=== PATIENT | male | born 1970 | race Caucasian/White ===

== ENCOUNTER 2021-05-22 12:41 | Emergency (ER) | payer OTHER, SELFPAY ==
[2021-05-22 12:46] VITALS: BP 106/70; PULSE 104; RESP 16; TEMP 36.8; O2SAT 98
--- NOTE | 2021-05-22 13:46 | ED.GENADULT ---
HPI - General Adult General Chief complaint: Back Pain/Injury Stated complaint: leg pain Time Seen by Provider: 05/22/21 12:42 Source: patient and RN notes reviewed Mode of arrival: ambulatory Limitations: no limitations History of Present Illness HPI narrative: Patient is a 51-year-old male who presents with history of back pain for 1 year noting that he gets pain in the lower back that radiates into the legs has seen orthopedist for this had x-rays of the hip and knee which were unremarkable patient has not seen primary care noting that he does not have 1 patient presents in no distress denying any current pain patient denies injury or trauma notes that his pain typically worsens while at work where he does prolonged standing patient on arrival presents with normal gait no distress Related Data Allergies Allergy/AdvReac Type Severity Reaction Status Date / Time Penicillins Allergy Mild Other Verified 05/22/21 12:58 Review of Systems Review of Systems: All systems reviewed & are unremarkable except as noted in HPI and below PMFSH Social History Social History (Updated 05/22/21 @ 13:47 by Louis Jacobs PA-C) Smoking status: Current every day smoker Gender identity (if verbalized by the patient): Male Exam Narrative: Exam Narrative: GENERAL: Well-appearing, well-nourished, and in no acute distress. HEAD: Normocephalic, atraumatic. EYES: PERRLA and EOMI. ENT: Nares clear, no rhinorrhea or epistaxis. Mucous membranes moist. CHEST: Clear to auscultation. No respiratory distress. No wheezes rales or rhonchi HEART: Regular rate and rhythm. No murmur heard. EXTREMITIES: Normal range of motion. No edema. SKIN: Warm, dry, no rash. NEURO: No focal deficits. Alert and oriented x3. Cranial nerves II through XII grossly intact. Normal speech and gait PSYCH: Normal mood and affect. Course Course Emergency Course: Patient given referral for primary care for further evaluation of his back pain will be discharged home does not currently have pain felt appropriate for outpatient reevaluation Vital Signs Vital signs: Vital Signs Temperature 98.2 F 05/22/21 12:46 Pulse Rate 104 H 05/22/21 12:46 Respiratory Rate 16 05/22/21 12:46 Blood Pressure 106/70 05/22/21 12:46 Pulse Oximetry 98 05/22/21 12:46 Temperature 98.2 F 05/22/21 12:46 Pulse Rate 104 H 05/22/21 12:46 Respiratory Rate 16 05/22/21 12:46 Blood Pressure 106/70 05/22/21 12:46 Pulse Oximetry 98 05/22/21 12:46 Medical Decision Making MDM Narrative Medical decision making narrative: Patients pain is positional in nature and localized to back without signs of cord compression or cauda equina based on neurological exam, skeletal exam and history. No fever or other significant factors to suggest osteomyelitis or spinal epidural abscess. No symptoms or signs to suggest pain is referred from abdominal or / cardiopulmonary sources. No pulsatile masses noted on exam. Patient ambulates with steady gait and is stable for outpatient management given case findings. Vital Signs Vital Signs: Vital Signs Temperature 98.2 F 05/22/21 12:46 Pulse Rate 104 H 05/22/21 12:46 Respiratory Rate 16 05/22/21 12:46 Blood Pressure 106/70 05/22/21 12:46 Pulse Oximetry 98 05/22/21 12:46 Temperature 98.2 F 05/22/21 12:46 Pulse Rate 104 H 05/22/21 12:46 Respiratory Rate 16 05/22/21 12:46 Blood Pressure 106/70 05/22/21 12:46 Pulse Oximetry 98 05/22/21 12:46 Discharge Plan Discharge Clinical Impression: Lumbar radiculopathy Patient Disposition: Home, Self-Care Condition: Stable Instructions: Antibiotic Form, Acute Low Back Pain (ED) Additional Instructions: Medications as needed and prescribed. Limit lifting and bending. You may apply heat or cold to the area as needed. Follow up with your doctor for further care in the next 7 days. Contact your doctor or return to the emergency department if you
== END 2021-05-22 13:55 | disposition home or self-care (01) ==
PROVIDERS: Emergency Provider Emergency Medicine
DX: M54.16 Radiculopathy, lumbar region (principal); F17.200 Nicotine dependence, unspecified, uncomplicated
CPT/HCPCS: 99283

== ENCOUNTER 2021-06-09 07:39 | Outpatient (CLI) | payer OTHER, SELFPAY ==
--- NOTE | ~2021-06-09 | MR_ITS ---
EXAMINATION: MR femur LT wo con, MR lower leg LT wo con DATE: 06/09/2021 10:06 INDICATION: Left leg pain TECHNIQUE: 1. Magnetic resonance imaging (MRI) of the left thigh/femur was performed without intravenous contras t. Sequences included axial, sagittal and coronal T1-weighted FSE and fluid sensitive FSE STIR. The c ontralateral right thigh is included on the coronal images. 2. MRI of the left lower leg was performed without intravenous contrast. Sequences included axial, sa gittal and coronal T1-weighted FSE and fluid sensitive FSE STIR. The contralateral right lower leg is included on the coronal images. COMPARISON: None. FINDINGS: Bone alignment is normal from the hips through the ankles. Normal bone marrow signal throughout. No f racture, reactive edema or pathologic marrow replacing process. Joint spaces appear normal although e valuation is somewhat limited given the large field of view of imaging. No joint effusions. No abnorm al masses or fluid collections identified. Normal and symmetric muscle bulk and signal throughout the bilateral thighs and calves. IMPRESSION: 1. Normal MRI of the left femur/thigh and left lower leg. Reviewed, dictated and finalized at location A. IMPRESSION: 1. Normal MRI of the left femur/thigh and left lower leg.
--- NOTE | ~2021-06-09 | MR_ITS ---
EXAMINATION: MR lumbar spine wo con EXAM DATE: 06/09/2021 10:06 INDICATION: Low back pain, left leg pain. TECHNIQUE: Multi-sequential, multiplanar MR images of the lumbar spine were obtained without contrast . Sagittal T1, T2, T2 fat saturation images. Axial T2 weighted images. There is no prior study for comparison. FINDINGS: Mild disc disease all levels from T11 to L5 with small Schmorl's nodes. Mild diffuse loss o f vertebral body height. Small hemangioma within the L1 vertebral body. The vertebral bodies are alig serene in the AP dimension. Nerve root redundancy above the L3-4 level likely due to the moderate to sev ere central canal stenosis at that level. Paraspinal soft tissue is unremarkable. Level by level evaluation: T12-L1: Disc does not extend beyond the endplate margin. Facet arthropathy: None. Neural foraminal stenosis: No stenosis. Central canal stenosis: No stenosis. L1-L2: Disc does not extend beyond the endplate margin. Facet arthropathy: Mild. Neural foraminal stenosis: No stenosis. Central canal stenosis: No stenosis. L2-L3: There is a mild diffuse disc bulge. Facet arthropathy: Mild to moderate. Neural foraminal stenosis: No stenosis. Central canal stenosis: Mild. L3-L4: There is a moderate to large diffuse disc bulge. Facet arthropathy: Moderate. Neural foraminal stenosis: Mild bilateral. Central canal stenosis: Moderate to severe. L4-L5: There is a moderate diffuse disc bulge. Facet arthropathy: Mild to moderate. Neural foraminal stenosis: Mild to moderate bilateral. Central canal stenosis: Mild. L5-S1: There is a mild diffuse disc bulge. Facet arthropathy: Mild. Neural foraminal stenosis: Mild to moderate left, mild right. Central canal stenosis: Mild. IMPRESSION: 1. L3-4 moderate to severe central canal stenosis likely causing the nerve root redundancy above thi s level. 2. Otherwise mild to moderate lumbar spondylosis. Reviewed, dictated and finalized at location A. IMPRESSION: 1. L3-4 moderate to severe central canal stenosis likely causing the nerve leland t redundancy above this level. 2. Otherwise mild to moderate lumbar spondylosis.
== END 2021-06-09 07:40 | disposition home or self-care (01) ==
PROVIDERS: Visit Provider Nurse Practitioner
DX: M54.5 Low back pain (principal); M79.605 Pain in left leg; M48.061 Spinal stenosis, lumbar region without neurogenic claudication; M47.816 Spondylosis without myelopathy or radiculopathy, lumbar region
CPT/HCPCS: 72148; 73718; 73721

== ENCOUNTER 2025-07-12 16:29 | Emergency (ER) | payer OTHER, SELFPAY ==
--- OUTSIDE RECORDS SUMMARY | 2025-07-12 16:36 | XMS_ITS | Clinical Summary ---
Author Organization [facility] Address [address] [place] [address] Care Team Providers Care Extrusion Former Name Role Phone Vadim Odom MD Primary Care Provider Source Comments [facility],non-owned Affiliates and Associated Physician Practices is amultiple site organization consisting of ambulatory clinics and hospital sitesin [place], [place], [place] and [place]. This disclosure is being madepursuant to the Care Everywhere program and may not contain all information available regarding this patient. Last updated 18.[facility] Allergies Active Allergy Reactions Criticality Noted Date Comments Penicillins Other High 07/18/2021 As a child Medications * Be aware that medications may not be up to date on this document. Alwaysverify current medications with the patient. cyclobenzaprine (FLEXERIL) 5 MG tablet Take 1 (one) tablet by mouth nightly as needed (Muscle spasms) 30 tablet 1 10/29/2021 Active gabapentin (NEURONTIN) 300 MG capsule Take 1 (one) capsule by mouth 3 times daily 90 capsule 4 10/29/2021 Active Active Problems No known active problems Social History Tobacco Use Types Packs/Day Years Used Date Smoking Tobacco: Every Day Cigarettes Smokeless Tobacco: Never Tobacco Cessation:Ready to Q uit: Yes; Counseling Given: Yes Alcohol Use Standard Drinks/Week Comments Yes 0 (1 standard drink = 0.6 oz pur e alcohol) Sex and Gender Information Value Date Recorded Sex Assigned at Not on file Legal Sex Male 11:59 AM CDT Gender Identity Not on file Sexual Orientation Not on file Last Filed Vital Signs Vital Sign Reading Time Taken Comments Blood Pressure - - Pulse - - Temperature - - Respiratory Rate - - Oxygen Saturation - - Inhaled Oxygen Concentration - - Weight 68 kg (150 lb) 07/18/2021 9:38 AM CDT Height - - Body Mass Index - - Plan of Treatment Health Maintenance Due Date Last Done Comments COLOGUARD (AGES 45-75) - COL ON CA SCREENING 1970 COLON MONITORING 1970 COLONOSCOPY - COLON CA SCREENING 1970 CT COLONOGRAPHY - COLON CA SCREENING 1970 Colorectal Cancer Screening 1970 FIT - COLON CA SCREENING 1970 FLEX SIG - COLON CA SCREENING 1970 LIPID TESTING 1970 HIV SCREENING 1985 HEPATITIS C SCREENING 04/11/1988 DTAP/TDAP/TD VACCINES (1 - Tdap) 1989 HEPATITIS B VACCINE (1 of 3 - 19+ 3-dose series) 1989 PNEUMOCOCCAL VACCINE 50+ (1 of 1 - PCV) 2020 ZOSTER VACCINE (1 of 2) 2020 COVID-19 VACCINE (1 - 2023-2 5 season) 2024 DEPRESSION SCREENING 11/24/2024 INFLUENZA VACCINE (#1) 2025 HIB VACCINE Aged Out No longer eligi ble based on patient's age to complete this topic HPV VACCINE Aged Out No longer eligi ble based on patient's age to complete this topic MENINGOCOCCAL (Group B) VACC INE SHARED DECISION-MAKING Aged Out No longer eligibl e based on patient's age to complete this topic MENINGOCOCCAL GROUPS A/C/Y/W VACCINE Aged Out No longer eligible b ased on patient's age to complete this topic Goals Goal Patient Goal Type Associated Problems Recent Progress Patient-Stated? Author Mobility General No Hina Rodriguez, RN Note: Expected end date: 11/23/2021 The goal is to maintain or improve your mobility at the optimum level for you. Interventions: Insurance COMM[employer]CIAL GENERIC Care Teams Extrusion Former Relationship Specialty Start Date End Date Vadim Odom MD [address] [place] [address] PCP - General 07/18/21
--- OUTSIDE RECORDS SUMMARY | 2025-07-12 16:36 | XMS_ITS | Continuity of Care Document ---
Author Name Beto Isbell Address [address] [place], [place] [id number] [place] [address] Organization Unknown Address [address] [place], [place] [id number] [place] [address] Medications No known medications Problems No known problems
--- OUTSIDE RECORDS SUMMARY | 2025-07-12 16:36 | XMS_ITS | Continuity of Care Document ---
Author Name Beto Isbell Address [address] [place], [place] [id number] [place] [address] Organization Unknown Address [address] [place], [place] [id number] [place] [address] Medications No known medications Problems No known problems
[2025-07-12 16:45] VITALS: BP 119/85; PULSE 84; RESP 16; TEMP 36.6; O2SAT 100
--- NOTE | 2025-07-12 18:20 | ED_ITS ---
HPI - URI/Sore Throat General Chief Complaint: Upper Respiratory Infection <Dulce Holly PA-C - Last Filed: 07/13/25 10:20> Stated Complaint: sore throat <Dulce Holly PA-C - Last Filed: 07/13/25 10:20> Time Seen by Provider: 07/12/25 18:20 <Dulce Holly PA-C - Last Filed: 07/13/25 10:20> Focused HPI: This is a 55 year old male that presents to the ER for sore throat. Ongoing over the last 3 weeks. Denies fevers. GENERAL: Well-appearing, well-nourished, and in no acute distress. HEAD: Normocephalic, atraumatic. CHEST: No respiratory distress. HEART: Regular rate NEURO: ?Alert and oriented x3. Patient screened in triage and initial orders placed.? ?Additional care and disposition to be based upon?diagnostic testing and treatment. <Dulce Holly PA-C - Last Filed: 07/13/25 10:20> History of Present Illness HPI Narrative: Agree with HPI. Patient is a smoker. Ongoing sore throat on the right side for several weeks. No weight loss, fevers, chills. He is a builder swallow solids and liquids. It does not feel like anything gets stuck. <Zaid Murphy MD - Last Filed: 07/12/25 20:13> Related Data Allergies/Adverse Reactions: Allergies Allergy/AdvReac Type Severity Reaction Status Date / Time Penicillins Allergy Mild Other Verified 05/22/21 12:58 <Dulce Holly PA-C - Last Filed: 07/13/25 10:20> Review of Systems Review of Systems: Gen.: Denies fevers or chills Eyes: Denies eye pain or visual change ENT: Denies congestion Respiratory: Denies shortness of breath or cough CV: Denies chest pain or palpitations GI: Denies abdominal pain nausea, emesis or diarrhea denies burning, urgency, frequency or hematuria Musculoskeletal: Denies back pain or muscle pain Neuro: Denies numbness, tingling, weakness or focal weakness Skin: Denies rash Except as documented, all other systems reviewed and negative <Zaid Murphy MD - Last Filed: 07/12/25 20:13> [facility] Social History Social History: Social History Smoking status: Current every day smoker Gender identity (if verbalized by the patient): Male <Dulce Holly PA-C - Last Filed: 07/13/25 10:20> Exam Narrative: APPEARANCE: No acute distress, nontoxic, resting in bed EYES: EOMI HEENT: Normocephalic, atraumatic, OMM. Tenderness to palpation to the right paratracheal area, no palpable mass. Oropharynx clear, no exudates or uvular de viation. RESPIRATORY: No respiratory distress Clear to auscultation bilaterally with no rhonchi wheezing or rales. CARDIOVASCULAR: Regular rate and rhythm without murmurs rubs or gallops. ABDOMINAL: Soft, nontender, nondistended, no rebound or guarding MUSCULOSKELETAl: Moves all extremities. No clubbing, cyanosis or edema. NEURO: Awake and alert. Following commands, speech normal, no focal deficits SKIN:: Warm, dry. No rashes lesions or abrasions PSYCHIATRIC: Normal affect/mood, <Zaid Murphy MD - Last Filed: 07/12/25 20:13> Course Vital Signs Vital signs: Vital Signs Temperature 97.8 F 07/12/25 16:45 Pulse Rate 84 07/12/25 16:45 Respiratory Rate 16 07/12/25 16:45 Blood Pressure 119/85 07/12/25 16:45 Pulse Oximetry 100 07/12/25 16:45 Oxygen Delivery Room Air 07/12/25 16:45 Temperature 97.8 F 07/12/25 16:45 Pulse Rate 84 07/12/25 16:45 Respiratory Rate 16 07/12/25 16:45 Blood Pressure 119/85 07/12/25 16:45 Pulse Oximetry 100 07/12/25 16:45 Oxygen Delivery Room Air 07/12/25 16:45 <Dulce Holly PA-C - Last Filed: 07/13/25 10:20> Vital Signs Temperature 97.8 F 07/12/25 16:45 Pulse Rate 84 07/12/25 16:45 Respiratory Rate 16 07/12/25 16:45 Blood Pressure 119/85 07/12/25 16:45 Pulse Oximetry 100 07/12/25 16:45 Oxygen Delivery Room Air 07/12/25 16:45 Temperature 97.8 F 07/12/25 16:45 Pulse Rate 84 07/12/25 16:45 Respiratory Rate 16 07/12/25 16:45 Blood Pressure 119/85 07/12/25 16:45 Pulse Oximetry 100 07/12/25 16:45 Oxygen Delivery Room Air 07/12/25 16:45 <Zaid Murphy MD - Last Filed: 07/12/25 20:13> MDM - URI/Sore Throat MDM Narrative Medical decision making narrative: 55-year-old male who presents to the ED for sore throat for several weeks. No weight loss plan. The patient is a current every day smoker for the past several years. He does not follow with any physician regularly as he does like doctors. His symptomatology is potentially concerning for a oropharyngeal cancer. Strep swab was negative. He will be given a referral to ENT for further evaluation. Patient stated that he would likely not follow-up the referrals is appreciated. He was given a GI cocktail for symptoms. Patient was deemed appropriate for discharge at this time. Given strict return precautions. <Zaid Murphy MD - Last Filed: 07/12/25 20:13> Differential Diagnosis Differential diagnosis: Likely other (strep pharyngitis, viral pharyngitis, cancer) <Zaid Murphy MD - Last Filed: 07/12/25 20:13> Lab Data Attestation: I reviewed the patient's lab results. <Zaid Murphy MD - Last Filed: 07/12/25 20:13> Labs: Lab Results 07/12/25 Range/Units 18:32 Group A Strep (PCR) Not detected (Negative) <Dulce Holly PA-C - Last Filed: 07/13/25 10:20> Lab Results 07/12/25 Range/Units 18:32 Group A Strep (PCR) Not detected (Negative) <Zaid Murphy MD - Last Filed: 07/12/25 20:13> Critical Care Time Critical Care Time Critical Care Time: No <Dulce Holly PA-C - Last Filed: 07/13/25 10:20> Discharge Plan Discharge Clinical Impression: Pharyngitis Qualifiers: Pharyngitis/tonsillitis etiology: unspecified etiology Qualified Code(s): J02.9 - Acute pharyngitis, unspecified <Dulce Holly PA-C - Last Filed: 07/13/25 10:20> Patient Disposition: Home <RICHARD Johnson Last Filed: 07/13/25 10:20> Condition: Stable <RICHARD Johnson Last Filed: 07/13/25 10:20> Instructions: Antibiotic Form, Pharyngitis (ED) <RICHARD Johnson Last Filed: 07/13/25 10:20> Additional Instructions: You likely have a pharyngitis. However, given your history of smoking, this may require further evaluation by a ear nose and throat physician. Your given a referral to Dr. Adhikari, follow-up in their office in the next week for re-evaluation. Your given a prescription for a benzocaine spray, take this as prescribed. Alternatively, there are [id number] options that will work similarly. Return to the ED for any new or worsening symptoms <Dulce Holly PA-C - Last Filed: 07/13/25 10:20> Patient Language: Turkmen <RICHARD Johnson Last Filed: 07/13/25 10:20> Prescriptions: New benzocaine 20 % aerosol,spray 1 applic mucous membrane BID PRN (Reason: mouth irritation) Qty: 57 0RF No Action lidocaine 5 % adhesive patch,medicated 1 patch topical DAILY Qty: 1 0RF Rx Instructions: leave on most painful area for up to 12 hrs, dispense one box ibuprofen [IBU] 600 mg tablet 600 mg PO QID PRN (Reason: fever or pain) Qty: 7 0RF metaxalone [Skelaxin] 800 mg tablet 800 mg PO TID PRN (Reason: muscle pain) Qty: 7 0RF <RICHARD Johnson Last Filed: 07/13/25 10:20> Follow-up/Referrals: Ramiro Adhikari MD [Physician, Ear, Nose, Throat] PHYSICIAN,OXYGEN THERAPIST [Primary Care Provider, Internal Medicine] <RICHARD Johnson Last Filed: 07/13/25 10:20>
[2025-07-12 19:03] LABS: Strep Group A RT-PCR NOT DETECTED (Negative)
[2025-07-12] MEDS: BELLADONNA ALK/PHENOB ELIX 10 ML, MAG HYDROX/ALUMINUM HYD/SIMETH 30 ML, LIDOCAINE 2% VI... PO (19:34)
== END 2025-07-12 19:57 | disposition home or self-care (01) ==
LOC: ANHED 19:47
PROVIDERS: Physician Assistant; Emergency Provider Student in an Organized Health Care Education/Training Program
DX: J02.9 Acute pharyngitis, unspecified (principal)
CPT/HCPCS: 87651; 99283; A9270